=== PATIENT | female | born 1955 | race Caucasian/White ===

== ENCOUNTER 2017-04-05 13:25 | Emergency (ER) | payer MEDICARE, MEDICAID ==
[~2017-04-05] VITALS: Ht 154.9 cm; Wt 67.3 kg
[2017-04-05 13:27] VITALS: BP 127/76; PULSE 80; RESP 16; O2SAT 100
--- NOTE | 2017-04-05 13:50 | ED.REPORT ---
HPI-Chest Pain 40 and Over Date of Service Apr 05, 2017 ED Provider: Familia Andrade MD A 61 year old female with a history of hypertension, diabetes, PE and hypothyroidism presents to the ED complaining of midsternal chest pain. This pain began 20 minutes prior to arrival in the ED and radiates to her back. The pain lasted approximately one hour and did not improve with nitro. The pt denies shortness of breath. She also denies history of [place]. The pt experienced similar symptoms one month ago and was seen at [facility]. She was discharged with instructions to have an outpatient stress test but has not yet had this test. Nursing Notes Stated Complaint: CHEST PAIN Chief Complaint: Chest Pain Nursing Notes Reviewed: Yes Allergies: Coded Allergies: gabapentin (Verified Allergy, Severe, 04/05/17) General Time Seen by MD: 13:49 Chief Complaint Chest pain Hx Obtained From: Patient Arrived By: Walk-in Sudden in Onset?: Yes Onset Occurred: 16 - 30 minutes ago Symptom Duration: 1 - 4 hours Recent Healthcare: No recent doctor visit, No recent hospitalization Similar Sx Previous: No Past Medical History Past Medical History History of pulmonary embolus Factor V Leiden Bipolar Hypothyroid Type II diabetes History of colitis Negative cardiac stress test in October 2011 Past Surgical History Bowel surgery History to ny Lumbar surgery 2 Carpal tunnel release Family History Father at at age 70 Smoking History Never Smoker Social History Alcohol Use: Denies alcohol use Other Social History: Good social support Ambulatory Status Independent Review of Systems Respiratory: Denies: Non-productive cough, Shortness of breath Cardiovascular: Reports: Chest pain GI: Denies: Abdominal pain, Vomiting Musculoskeletal: Reports: Back pain, Denies: Neck pain Skin: Denies Rash Complete sys rev & neg: except as marked. Physical Exam Initial Vital Signs Vital Signs (First) Date Time Temp Pulse Resp B/P Pulse Ox O2 Delivery O2 Flow Rate FiO2 04/05/17 13:27 36.0 80 16 127/76 100 Room Air Initial VS: Reviewed General/Constitutional: Awake, Alert Respiratory / Chest: Atraumatic, Breath sounds NL, Breath sounds = bilat, No respiratory distress Cardiovascular: Heart rate NL, Regular rhythm, Heart sounds NL, No murmurs Abdomen: Atraumatic, Soft, Non-tender Neck: Atraumatic, Supple, Full range of motion Back: Atraumatic, Full range of motion Lower Extremity / Pelvis / MS: Atraumatic, Full range of motion, No edema Skin: Atraumatic, Color NL, No rash, Warm, Dry Neurologic: Oriented X3, Speech NL, No motor deficits, No sensory deficits Psychiatric: Affect NL, Mood NL Head / Eyes: Atraumatic, Normocephalic, PERRL, EOMI ENT: Atraumatic, Airway patent, Mucous membranes moist Upper Extremity / MS: Atraumatic, Full range of motion Interpretation & Diagnostics Lab Results Interpretation Result Diagram: 04/05/17 1353 04/05/17 1353 Test 04/05/17 13:53 04/05/17 16:44 White Blood Count 8.0th/mm3 (3.8-10.1) Red Blood Count 4.80mil/mm3 (3.90-5.20) Hemoglobin 14.6g/dL (12.0-15.6) Hematocrit 43.6% (35.0-46.0) Mean Corpuscular Volume 90.8fL (81-100) Mean Corpuscular Hemoglobin 30.4pg (27.0-35.0) Mean Corpuscular Hemoglobin Concent 33.5% (32.0-37.0) Red Cell Distribution Width 13.3% (12.3-15.4) Platelet Count 365bil/L (150-400) Neutrophils (%) (Auto) 56.4% (40-74) Lymphocytes (%) (Auto) 33.0% (14-46) Monocytes (%) (Auto) 7.9% (4-12) Eosinophils (%) (Auto) 2.0% (0-5) Basophils (%) (Auto) 0.6% (0-3) D-Dimer < 0.50mg/L FEU (<0.50) Sodium Level 138mEq/L (134-144) Potassium Level 3.4mEq/L (3.5-5.2) Chloride Level 95mEq/L (97-108) Carbon Dioxide Level 26mmol/L (18-29) Blood Urea Nitrogen 28mg/dL (6-24) Creatinine 0.66mg/dL (0.57-1.00) Estimat Glomerular Filtration Rate 131mL/min (>59) Glucose Level 108mg/dL (60-99) Calcium Level 9.5mg/dL (8.5-10.1) Magnesium Level 2.0mg/dL (1.6-2.6) Total Bilirubin 0.3mg/dL (0.0-1.2) Aspartate Amino Transf (AST/SGOT) 23U/L (0-50) Alanine Aminotransferase (ALT/SGPT) 35U/L (0-32) Alkaline Phosphatase 90U/L (25-165) Total Protein 7.9g/dL (6.4-8.4) Albumin 4.7g/dL (3.4-5.0) Hold Shields Top Tube Received (Received) Troponin T < 0.010ug/L (0.0-0.011) ECG Interpretation ECG Interpretation: normal sinus rhythm with a rate of [address]/T changes Q waves in III, aVF and V1 which is unchanged from previous Time: 13:58 Interpreted by: ED physician X-Ray Chest Interpretation Chest Xray Interpretation: IMPRESSION: No acute cardiopulmonary disease. Dictated by: Bernarda Dorsey M.D. on 04/05/2017 at 14:07 Approved by: Bernarda Dorsey M.D. on 04/05/2017 at 14:07 Interpretation / Wet Read by: Interpret - Radiologist Re-Eval/Medical Decision Med Decision/Clinical Course 61-year-old female history of hypertension, diabetes, hypercholesterolemia, PE presenting with substernal chest pain prior to arrival which resolved spontaneously. She reports nitroglycerin did not help. Vital signs are stable here. Her EKG no shows no changes. Troponins are negative 2. D-dimer is negative. I recommended hospitalization given her elevated heart score. Patient declines and will follow up with her primary doctor for an outpatient stress test. She understands the risk of the possibility of . Time of Eval: 13:49 Patient Status: Condition improved Re-Evaluation/Progress Note: Pt informed of radiology results and diagnosis during the initial interview. Options for both admission and discharge are discussed, and the pt requests discharge. The pt understands the risks associated with discharge including cardiac arrest and . The pt understands and agrees with the plan. All questions are addressed at this time. Time of Eval: 17:57 Patient Status: Condition improved Re-Evaluation/Progress Note: Pt rechecked and informed of negative troponin. The diagnosis and plan for discharge are discussed. The pt understands and agrees with the plan. All questions are addressed at this time. Counseled Regarding: Diagnosis, Need for follow-up, When/why to return to ED Discharge & Departure Primary Impression: Chest pain Chest pain type: unspecified Qualified Code: R07.9 - Chest pain, unspecified Disposition: Home Discharge Condition All VS Reviewed: Yes Condition: Stable Patient Instructions: Chest Pain (ED) Additional Instructions: Thank you for entrusting us with your care. Your heart enzymes were negative twice. You have decided to go home rather than be hospitalized. You understand the risk of going home up to the possibility of . Call your primary care physician to arrange a follow up appointment in the next several days. Arrange for an outpatient stress test as soon as possible. Return to the emergency department if you develop any new or worsening symptoms such as recurrent chest pain, shortness of breath, weakness, lightheadedness or fever. Referrals: Tirso Moss MD (PCP) Scribe Attestation Portions of this note were transcribed by Servando Whaley. I, Dr. Andrade personally performed the history, physical exam and medical decision-making; I reviewed and confirmed the accuracy of the information in the transcribed note. copies to: Tirso Moss MD, Ben M MD Apr 05, 2017 13:50 SERVANDO WHALEY Apr 05, 2017 15:07
[2017-04-05 14:02] LABS: BASOPHILS % (AUTO) 0.6 % (0-3); MONOCYTES % (AUTO) 7.9 % (4-12); Mean Corpuscular Hemoglobin 30.4 pg (27.0-35.0); Mean Corpuscular Volume 90.8 fL (81-100); NEUTROPHILS % (AUTO) 56.4 % (40-74); Platelet Count 365 bil/L (150-400)
--- NOTE | 2017-04-05 14:10 | DRSVH ---
PROCEDURE: X-RAY CHEST ONE VIEW, PORTABLE ([id number]) INDICATIONS: 61 year-old woman with chest pain. TECHNIQUE: One view of the chest was acquired. COMPARISON: [facility], CT, CHEST ANGIO-PE, 11/26/2014, 15:34. [facility], C R, CHEST 1VW (PORTABLE), 11/26/2014, 14:15. FINDINGS: Surgical changes and devices: None. Lungs and pleura: No pleural effusions or pneumothorax. Lungs are clear. Mediastinum: Mediastinal contours appear normal. Heart size is normal. Bones and chest wall: No suspicious bony lesions. Overlying soft tissues appear unremarkable. Old left rib fractures are noted. IMPRESSION: No acute cardiopulmonary disease. Dictated by: Bernarda Dorsey M.D. on 04/05/2017 at 14:07 Approved by: Bernarda Dorsey M.D. on 04/05/2017 at 14:07
[2017-04-05 14:23] LABS: TROPONIN T < 0.010 ug/L (0.0-0.011)
[2017-04-05 16:15] VITALS: BP 122/66; PULSE 75; RESP 16; O2SAT 95
[2017-04-05 18:05] VITALS: BP 131/84; PULSE 71; RESP 14; O2SAT 98
== END 2017-04-05 18:05 | disposition home or self-care (01) ==
LOC: SED 13:25
DX: R07.2 Precordial pain (principal); I10 Essential (primary) hypertension; E11.9 Type 2 diabetes mellitus without complications; E03.9 Hypothyroidism, unspecified; D68.59 Other primary thrombophilia; Z88.8 Allergy status to other drugs, medicaments and biological substances